=== PATIENT | male | born 1980 | race Two or more races ===

== ENCOUNTER 2024-02-10 11:30 | Emergency (ER) | payer OTHER ==
[~2024-02-10] VITALS: Ht 165.1 cm; Wt 71.2 kg
[2024-02-10] MEDS ORDERED: AKTOB5 ML OP (12:32)
== END 2024-02-10 12:50 | disposition home or self-care (01) ==
LOC: ER 11:30
DX: H00.014 Hordeolum externum left upper eyelid (principal); H00.011 Hordeolum externum right upper eyelid